=== PATIENT | male | born 1955 | race Caucasian/White ===

== ENCOUNTER 2017-02-21 13:54 | Emergency (ER) | payer MEDICAID ==
--- NOTE | 2017-02-21 14:17 | EDPHY ---
H & P Stated Complaint: ETOH, Low Back Pain Time Seen by Provider: 02/21/17 14:04 - Personal History Current Tetanus Diphtheria and Acellular Pertussis (TDAP): Yes Tetanus Vaccine Date: 2008 - Medical/Surgical History Hx Asthma: No Hx Chronic Respiratory Disease: No Hx Diabetes: No Hx Cardiac Disease: No Hx Renal Disease: No Hx Cirrhosis: No Hx Alcoholism: Yes Hx HIV/AIDS: No Hx Splenectomy or Spleen Trauma: No Other PMH: SZ hep c HTN ETOH - Social History Smoking Status: Current some day smoker Constitutional: Initial Vital Signs Temperature (C) 36.9 C 02/21/17 13:56 Heart Rate 95 02/21/17 13:56 Respiratory Rate 18 02/21/17 13:56 Blood Pressure 151/98 H 02/21/17 13:56 O2 Sat (%) 92 02/21/17 13:56 O2 Delivery Mode Room Air Allergies/Adverse Reactions: No Known Allergies Allergy (Unverified 09/22/14 17:19) Home Medications: Medication Instructions Recorded FLUoxetine [Prozac 20 MG (*)] 20 mg PO DAILY 09/28/14 Lisinopril [Zestril 20 mg (*)] 20 mg PO DAILY 09/28/14 Naproxen Sodium [Aleve 220 MG (*)] 220 mg PO BID PRN 09/28/14 buPROPion XL [Wellbutrin 150mg XL] 150 mg PO DAILY 09/28/14 traMADol [Ultram 50 mg (*)] 50 mg PO BID 09/28/14 Amoxicillin/Clavulanate Pot 875 mg PO BID #20 tab 10/01/14 [Augmentin 875 MG TAB (*)] Doxycycline Hyclate [Vibramycin 100 mg PO BID #20 capsule 10/01/14 100 MG (*)] Tamsulosin HCl [Flomax 0.4 MG (*)] 0.4 mg PO DAILY #30 cap 10/01/14 amLODIPine BESYLATE [Norvasc 5 mg 5 mg PO DAILY #30 tab 10/01/14 (*)] Ibuprofen [Motrin] 800 mg PO Q8 #20 tab 02/21/17 Medical Decision Making - Diagnostics Imaging Results: Imaging Impressions Abdomen CT 02/21/17 14:24 Impression: 1. No acute findings in the abdomen or pelvis. 2. Nonspecific mildly prominent lymph nodes in the jairo hepatis and retroperitoneum. Recommend a follow-up CT abdomen and pelvis with IV and oral contrast in 3 months. 3. Nonobstructing left nephrolithiasis. Degenerative change in the spine with moderate spinal canal narrowing at L1-L2. 5. Fatty liver. 6. Additional findings as above. Findings discussed with Eugene Sousa MD, on 02/21/2017 at 14:54. Imaging: Discussed imaging studies w/ telegraphic instrument supervisor Radiologist, I viewed and interpreted images myself ED Course/Re-evaluation: CHIEF COMPLAINT: Lower back pain HISTORY OF PRESENT ILLNESS: The patient is an intoxicated 61 y/o male with a history of alcoholism and hepatitis C arriving with his friend complaining of chronic lower back pain. He has been treating his pain with alcohol and admits to significant alcohol use today. He denies fever, chest pain, dyspnea, midline spinal pain, weakness, paresthesias, recent illness, recent trauma, or other symptoms. REVIEW OF SYSTEMS: A 10 point review of systems was performed and is negative with the exception of the elements mentioned in the history of present illness. PHYSICAL EXAM: HR, BP, O2 Sat, RR. Temp noted General Appearance: Alert, well hydrated, appropriate, and non-toxic appearing. Head: Atraumatic without scalp tenderness or obvious injury Eyes: Pupils equal, round, reactive to light and accommodation, EOMI, no trauma , no injection. Nose: Atraumatic, no rhinorrhea, clear. Throat: Mucus membranes moist. Neck: Supple, nontender, no lymphadenopathy. Respiratory: No retractions, no distress, no wheezes, and no accessory muscle use. Lungs are clear to auscultation bilaterally. Cardiovascular: Regular rate and rhythm, no murmurs, rubs, or gallops. Good capillary refill all extremities. Gastrointestinal: Abdomen is soft, nontender, non-distended, no masses, no rebound, no guarding, no peritoneal signs. Musculoskeletal: Normal active ROM of all extremities, atraumatic. Right CVA tenderness. Neurological: Alert, appropriate, and interactive. The patient has non-focal cranial nerves, motor, sensory, and cerebellar exam. Skin: No rashes, good turgor, no nodules on palpation. Past medical history: Hepatitis C, alcohol abuse Past surgical history: Noncontributory Family history: Noncontributory Social history: Transient. Lives in [place]. Friend at bedside. DIAGNOSTICS/PROCEDURES/CRITICAL CARE TIME: Abdomen/Pelvis CT: negative for acute process. DIFFERENTIAL DIAGNOSIS: The differential diagnosis for the patient's back pain included but was not limited to musculoskeletal pain, epidural abscess, herniated disk, spinal fracture, and intra-abdominal causes including urinary system. MEDICAL DECISION MAKING: This is a 61 y/o male with alcoholism and hepatitis C who presents with baseline lower back pain and alcohol intoxication. He has right CVA tenderness on exam. He is afebrile. His presentation likely represents musculoskeletal pain , but we will need to rule out kidney stone due to his focal right CVA tenderness. He has no systemic infectious symptoms. Plan for IV, labs, UA, and abdomen/pelvis CT. 1L IV NS administered. Reassessed patient and discussed findings. LFTs are elevated, which is baseline for him and likely related to his hepatitis. UA normal. CT negative. He will be discharged home with standard musculoskeletal back pain care and follow up instructions. Return precautions discussed. He is comfortable with this plan. - Data Points Laboratory Results: Laboratory Results 02/21/17 14:50 02/21/17 14:50 02/21/17 02/21/17 14:50 14:50 WBC 4.43 10^3/uL 10^3/uL (3.80-9.50) RBC 4.85 10^6/uL 10^6/uL (4.40-6.38) Hgb 15.4 g/dL g/dL (13.7-17.5) Hct 43.7 % % (40.0-51.0) MCV 90.1 fL fL (81.5-99.8) MCH 31.8 pg pg (27.9-34.1) MCHC 35.2 g/dL g/dL (32.4-36.7) RDW 15.3 % H % (11.5-15.2) Plt Count 43 10^3/uL L 10^3/uL (150-400) MPV 9.6 fL fL (8.7-11.7) Neut % (Auto) 38.6 % L % (39.3-74.2) Lymph % (Auto) 43.6 % % (15.0-45.0) Lipscomb % (Auto) 11.7 % % (4.5-13.0) Eos % (Auto) 4.7 % % (0.6-7.6) Baso % (Auto) 0.9 % % (0.3-1.7) Nucleat RBC Rel Count 0.0 % % (0.0-0.2) Absolute Neuts (auto) 1.71 10^3/uL 10^3/uL (1.70-6.50) Absolute Lymphs (auto) 1.93 10^3/uL 10^3/uL (1.00-3.00) Absolute Monos (auto) 0.52 10^3/uL 10^3/uL (0.30-0.80) Absolute Eos (auto) 0.21 10^3/uL 10^3/uL (0.03-0.40) Absolute Basos (auto) 0.04 10^3/uL 10^3/uL (0.02-0.10) Absolute Nucleated RBC 0.00 10^3/uL 10^3/uL (0-0.01) Immature Gran % 0.5 % % (0.0-1.1) Immature Gran # 0.02 10^3/uL 10^3/uL (0.00-0.10) Platelet Estimate DECREASED L (ADEQ) Sodium 147 mEq/L H mEq/L (134-144) Potassium 3.1 mEq/L L mEq/L (3.5-5.2) Chloride 110 mEq/L mEq/L (97-110) Carbon Dioxide 23 mEq/l mEq/l (22-31) Anion Gap 14 mEq/L mEq/L (8-16) BUN 8 mg/dL mg/dL (7-23) Creatinine 0.6 mg/dL L mg/dL (0.7-1.3) Estimated GFR > 60 Glucose 89 mg/dL mg/dL (70-100) Calcium 8.2 mg/dL L mg/dL (8.5-10.4) Total Bilirubin 0.7 mg/dL mg/dL (0.1-1.4) Conjugated Bilirubin 0.5 mg/dL mg/dL (0.0-0.5) Unconjugated Bilirubin 0.2 mg/dL mg/dL (0.0-1.1) AST 190 IU/L H IU/L (17-59) ALT 144 IU/L H IU/L (21-72) Alkaline Phosphatase 56 IU/L IU/L (38-126) Total Protein 6.5 g/dL g/dL (6.3-8.2) Albumin 3.3 g/dL L g/dL (3.5-5.0) Lipase 143 IU/L IU/L (23-300) Medications Given: Discontinued Medications Sodium Chloride (Ns) 1,000 mls @ 0 mls/hr IV EDNOW ONE; Wide Open PRN Reason: Protocol Stop: 02/21/17 14:22 Last Admin: 02/21/17 14:54 Dose: 1,000 mls Departure - Departure Disposition: Home, Routine, Self-Care Clinical Impression: Elevated liver enzymes Low back strain Qualifiers: Encounter type: initial encounter Qualified Code(s): S39.012A - Strain of muscle, fascia and tendon of lower back, initial encounter Hepatitis C Qualifiers: Viral hepatitis chronicity: unspecified Hepatic coma status: without hepatic coma Qualified Code(s): B19.20 - Unspecified viral hepatitis C without hepatic coma Alcohol dependence Qualifiers: Substance use status: uncomplicated Qualified Code(s): F10.20 - Alcohol dependence, uncomplicated Condition: Good Instructions: Low Back Strain (ED) Additional Instructions: 1. Take 800mg ibuprofen every 6-8 hours as needed for pain over the next few days. 2. You can try applying a heat pad to sore areas as well. 3. Follow up with back specialist in the next week. 4. Return to the ED for worsening of condition. Referrals: Casey Donaldson MD [Medical Doctor] - As per Instructions [facility],. [Clinic] - As per Instructions Prescriptions: Ibuprofen [Motrin] 800 mg PO Q8 #20 tab Report Scribed for: Eugene Sousa Report Scribed by: Ryann Swift Date of Report: 02/21/17 Time of Report: 15:20
[2017-02-21] MEDS ORDERED: NS 1,000 ML IV ONE (14:21)
[2017-02-21] MEDS ORDERED: IOPAMIDOL (ISOVUE-300) 100 ML BTL ONE (14:29)
[2017-02-21 15:16] LABS: PLATELET COUNT 43 10^3/uL (150-400)
[2017-02-21 16:11] VITALS: BP 141/98; PULSE 87; RESP 19; TEMP 98.6; O2SAT 94
--- NOTE | 2017-02-21 18:31 | ASDISCHSUM ---
Discharge Information Plan Status:Homeless/Senior Living Medically Cleared to Leave: Discharge Date:02/21/2017 04:11 PM D/C Disposition:Streets (Homeless) ADT D/C Disposition:Home, Routine, Self-Care Projected Discharge Date:02/21/2017 04:11 PM Transportation at D/C:Friend Discharge Delay Reason: Follow-Up Date:02/21/2017 04:11 PM Discharge Slot: Final Diagnosis: Placement Information Patient Contact Information Contact Name:BELINDA Relationship: Address: Work Phone: City:[place] Alternate Phone: State/Zip Code:[place] Email: Financial Information Financial Class: Primary Plan Desc:[employer] PEDIAT[employer]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 Comorbidities - select Answers: Mild liver or renal all that apply disease Emergency dept visits in Answers: 1 last 6 months Score: 3 Date Signed: 02/21/2017 06:29 PM Electronically Signed By:Maisha Clark RN [facility] CM Progress Note CM Note CM Note Notes: Patient presented with a friend to the ED for low back pain. Patient is intoxicated and admits to drinking heavily today. Patient has a history of Hep C. Patient is homeless. Date Signed: 02/21/2017 06:31 PM Electronically Signed By:Maisha Clark RN Intervention Information
== END 2017-02-21 16:11 | disposition home or self-care (01) ==
DX: S39.012A Strain of muscle, fascia and tendon of lower back, initial encounter (principal); B19.20 Unspecified viral hepatitis C without hepatic coma; R94.5 Abnormal results of liver function studies; I10 Essential (primary) hypertension; F17.200 Nicotine dependence, unspecified, uncomplicated; E86.9 Volume depletion, unspecified; X58.XXXA Exposure to other specified factors, initial encounter
CPT/HCPCS: Q9967

== ENCOUNTER 2017-02-23 16:02 | Emergency (ER) | payer MEDICAID ==
--- NOTE | 2017-02-23 16:11 | EDPHY ---
H & P Time Seen by Provider: 02/23/17 16:11 HPI/ROS: HPI: This is a 61-year-old male presents with Chief Complaint: Location: Lower back Quality: Pain Duration: 1 month Signs and Symptoms: No bleeding, + radiation to left leg, no numbness, no weakness, no tingling, no incontinence, + decreased range of motion, no swelling , + pain Timing: Acute Severity: Moderate Context: Patient is homeless, daily alcohol user, admits to drinking a pt of vodka today, was walking outside on the trail, when he lost his balance and fell forward landing on his left lower back. He reports that he had great difficulty moving from a lying to standing position that took him quite a bit of time and causes moderate pain. He reports that his lower back has been causing him difficulty over the last month. He has been attending the [facility] trying to get back in shape. Denies numbness/weakness/incontinence/seizure activity. He is ambulatory per EMS with a slow gait. Chart review shows that patient was here 2 days ago with complaints of low back pain no abdominal pain. CT abdomen and pelvis scan was obtained at that time which showed left nephrolithiasis, moderate degenerative changes at L1-L2 with moderate spinal canal stenosis. Modifying Factors: None Comment: ROS: see HPI Constitutional: No fever, no chills, no weight loss Eyes: No blurred vision Respiratory: No shortness of breath, no cough Cardiovascular: No chest pain Gastrointestinal: No nausea, no vomiting no diarrhea Genitourinary: No dysuria Extremities: No myalgias Neurologic: No weakness, no numbness Skin: No rashes Hematologic: No bruising, no bleeding MEDICAL/SURGICAL/SOCIAL HISTORY: Medical history: SZ, hep c, HTN, ETOH Surgical history: Denies Social history: Homeless. CONSTITUTIONAL: Untidy intoxicated elderly white male, smells heavily of alcohol and tobacco smoke, talkative but speech is somewhat slurred, awake and alert, no obvious distress HEENT: Atraumatic and normocephalic, PERRL, EOMI. no globe entrapment, no raccoon eyes. no Beard signs.Tympanic membranes clear. No tympanic membrane rupture. Nares patent; no septal hematoma. Oropharynx clear, no exudate and moist pink mucosa. No malocclusion. no dental trauma. Airway patent. No lymphadenopathy. NECK: supple, no midline tenderness, flexion 45 degrees, extension 45 degrees, right and left lateral flexion 45 degrees. No meningismus. Cardiovascular: Normal S1/S2, regular rate, regular rhythm, without murmur rub or gallop. PULMONARY/CHEST: Symmetrical and nontender. no crepitus. Clear to auscultation bilaterally. Good air movement. No accessory muscle usage. ABDOMEN: Soft, nondistended, nontender, no ecchymosis, no rebound, no guarding , no peritoneal signs, no masses or organomegaly. No CVAT. PELVIC: no pain with rocking; bilateral hips flexion 125 degrees, extension 30 degrees, with no pain internal rotation and no pain external rotation. BACK: No midline tenderness, no ecchymosis, no paraspinous spasm, mild left lumbar paraspinous muscle reproducible tenderness, deep tendon reflexes 2/2, no pain with right straight leg raise, + moderate pain with straight leg raise on the left. Flexion/extension/bilateral lateral rotation is limited due to pain. Patient is able to room self or room bed and pull himself up from lying to sitting position with mild assistance. EXTREMITIES: 2/2 pulses, no deformities, no clubbing, no cyanosis or edema. NEUROLOGICAL: no focal neuro deficits. GCS 15. SKIN: Warm and dry, no erythema. no rash. Good capillary refill. Source: Patient, Old records Exam Limitations: Intoxication - Personal History Tetanus Vaccine Date: 2008 - Medical/Surgical History Hx Asthma: No Hx Chronic Respiratory Disease: No Hx Diabetes: No Hx Cardiac Disease: No Hx Renal Disease: No Hx Cirrhosis: No Hx Alcoholism: Yes Hx HIV/AIDS: No Hx Splenectomy or Spleen Trauma: No Other PMH: SZ hep c HTN ETOH - Social History Smoking Status: Current some day smoker Constitutional: Initial Vital Signs O2 Sat (%) 95 02/23/17 16:15 O2 Delivery Mode Room Air O2 (L/minute) 2 Allergies/Adverse Reactions: No Known Allergies Allergy (Verified 02/23/17 16:14) Home Medications: Medication Instructions Recorded FLUoxetine [Prozac 20 MG (*)] 20 mg PO DAILY 09/28/14 Lisinopril [Zestril 20 mg (*)] 20 mg PO DAILY 09/28/14 Naproxen Sodium [Aleve 220 MG (*)] 220 mg PO BID PRN 09/28/14 buPROPion XL [Wellbutrin 150mg XL] 150 mg PO DAILY 09/28/14 traMADol [Ultram 50 mg (*)] 50 mg PO BID 09/28/14 Amoxicillin/Clavulanate Pot 875 mg PO BID #20 tab 10/01/14 [Augmentin 875 MG TAB (*)] Doxycycline Hyclate [Vibramycin 100 mg PO BID #20 capsule 10/01/14 100 MG (*)] Tamsulosin HCl [Flomax 0.4 MG (*)] 0.4 mg PO DAILY #30 cap 10/01/14 amLODIPine BESYLATE [Norvasc 5 mg 5 mg PO DAILY #30 tab 10/01/14 (*)] Ibuprofen [Motrin] 800 mg PO Q8 #20 tab 02/21/17 Cyclobenzaprine [Flexeril 10 MG 10 mg PO TID PRN #12 tab 02/23/17 (*)] Lidocaine 5% [Lidoderm 5% Patch 1 ea TD DAILY #10 patch 02/23/17 (*)] methylPREDNISolone [Medrol Dose 1 each PO AD #0 ea 02/23/17 Joseph] Medical Decision Making - Diagnostics Imaging Results: Imaging Impressions Lumbar Spine CT 02/23/17 16:22 Impression: 1. No definite acute lumbar compression fracture. 2. L4-L5: Moderate to severe central canal stenosis secondary to degenerative grade 1 anterolisthesis and severe bilateral facet arthropathy. 3. L1-L2: Moderate central canal stenosis, severe left lateral recess stenosis, secondary to degenerative grade 1 retrolisthesis, severe degenerative disease, facet arthropathy and left paramedian disk herniation. 4. Recommend MRI of the lumbar spine for further evaluation. Please see above findings at specific levels. Findings and recommendations discussed with Emergency Department physician, Dr. Karrie Bentley at 17:41 hour, 02/23/2017. Final report concurs with initial preliminary interpretation. ED Course/Re-evaluation: CT lumbar spine ordered Given p.o. Decadron, Lidoderm patch, gabapentin with moderate relief of pain No signs of neurovascular compromise/tenting of skin/compartment syndrome/ extremities and joints examined above and below area of concern and are neurovascularly intact. CT lumbar spine shows no acute fracture. L4-L5 moderate to severe central canal stenosis secondary to degenerative grade 1 anterolisthesis and severe bilateral facet arthropathy. L1-L2 moderate central canal stenosis with severe left lateral recess stenosis secondary to degenerative grade 1 retrolisthesis and severe degenerative disc disease. Advised follow-up with Neurosurgery, MRI outpatient Ambulatory without deficits. Patient able to return home as pain controlled. Uro urinary symptoms and no incontinence. This patient was seen under the supervision of my primary supervising physician. I evaluated care for this patient independently. Discussed this patient with Dr. Bentley who did not see the patient. Differential Diagnosis: Back pain including but not limited to muscular pain, herniated disc, spine fracture, intra-abdominal causes and urinary tract infection. Departure - Departure Disposition: Home, Routine, Self-Care Clinical Impression: Degenerative disc disease at L5-S1 level, Lumbar disc herniation with radiculopathy Condition: Good Instructions: Lumbar Disc Herniation (ED), Degenerative Disc Disease (ED) Additional Instructions: Please take Medrol Dosepak until complete. You may use the muscle relaxers every 8 hr as needed for spasm. Apply Lidoderm patch for 12 hr at a time. Follow-up with Neurosurgery for further evaluation and recommendation of conservative management versus adjuvant therapy. Do not go to the gym or do heavy lifting/physical activity until seen by Neurosurgery. Referrals: Dragan Srinivasan MD [Medical Doctor] - As per Instructions Prescriptions: Cyclobenzaprine [Flexeril 10 MG (*)] 10 mg PO TID PRN #12 tab PRN Reason: Spasms Lidocaine 5% [Lidoderm 5% Patch (*)] 1 ea TD DAILY #10 patch methylPREDNISolone [Medrol Dose Joseph] 1 each PO AD #0 ea
[2017-02-23 16:43] VITALS: RESP 16
[2017-02-23] MEDS ORDERED: GABAPENTIN 300 MG CAP PO ONE (18:00)
[2017-02-23] MEDS ORDERED: LIDOCAINE 5% 1 EA PATCH TD ONE (18:00)
[2017-02-23] MEDS ORDERED: DEXAMETHASONE 4 MG TAB PO ONE (18:01)
[2017-02-23 18:09] VITALS: BP 141/82; PULSE 50; TEMP 97.9; O2SAT 98
[2017-02-23] MEDS ORDERED: PATCH REMOVAL 1 EA PATCH TD SCH (21:00)
== END 2017-02-23 18:19 | disposition home or self-care (01) ==
LOC: EDUNIT#
DX: M51.37 Other intervertebral disc degeneration, lumbosacral region (principal); M51.16 Intervertebral disc disorders with radiculopathy, lumbar region; I10 Essential (primary) hypertension; F17.200 Nicotine dependence, unspecified, uncomplicated; W01.0XXA Fall on same level from slipping, tripping and stumbling without subsequent striking against object, initial encounter; Y99.8 Other external cause status; Y93.89 Activity, other specified

== ENCOUNTER → 2017-04-22 | Outpatient (CLI) | payer MEDICAID | LOC: FIMAGING 07:17 | PROVIDERS: ATTEND Neurological Surgery | DX: M51.26 Other intervertebral disc displacement, lumbar region (principal); M46.96 Unspecified inflammatory spondylopathy, lumbar region; M48.061 Spinal stenosis, lumbar region without neurogenic claudication; M51.27 Other intervertebral disc displacement, lumbosacral region ==

== ENCOUNTER → 2017-05-03 | Day surgery (SDC) | payer MEDICAID ==
[~2017-05-03] MED LIST: DEXAMETHASONE 10 MG/ML VIAL MISC ONE; IOPAMIDOL (ISOVUE-M 300) 15 ML VIAL ONE; LIDOCAINE 1% 300 MG/30 ML SDV ONE
== END | disposition home or self-care (01) ==
LOC: FIMAGING 12:31
PROVIDERS: ATTEND Physician Assistant
PROC: 3E0S33Z Introduction of Anti-inflammatory into Epidural Space, Percutaneous Approach (ICD-10-PCS; principal; 2017-05-03)
PROC: 3E0S3BZ Introduction of Anesthetic Agent into Epidural Space, Percutaneous Approach (ICD-10-PCS; principal; 2017-05-03)
DX: M48.062 Spinal stenosis, lumbar region with neurogenic claudication (principal); M54.16 Radiculopathy, lumbar region
CPT/HCPCS: Q9967

== ENCOUNTER → 2017-06-20 | Outpatient (CLI) | payer MEDICAID ==
[~2017-06-20] MED LIST changes: -DEXAMETHASONE 10 MG/ML VIAL MISC ONE; +IOPAMIDOL (ISOVUE-300) 100 ML BTL ONE; -IOPAMIDOL (ISOVUE-M 300) 15 ML VIAL ONE; -LIDOCAINE 1% 300 MG/30 ML SDV ONE
== END ==
LOC: FIMAGING 11:00
PROVIDERS: ATTEND Physician Assistant
DX: N20.0 Calculus of kidney (principal)
CPT/HCPCS: Q9967